=== PATIENT | female | born 1955 | race Caucasian/White ===

== ENCOUNTER → 2016-09-21 | Outpatient (CLI) | payer OTHER ==
[~2016-09-21] MED LIST: NOHOMEMEDICATIONS
--- NOTE | ~2016-09-21 | EKG ---
[address] [address] ELECTROCARDIOGRAM REPORT Name: TRENA HUFFMAN Room #: REG [facility]#: [id number] Admission: 09/21/16 Attend Phys: Josh Ayala MD Discharge: Date of : 51 Report #: [id number] THIS REPORT FOR: //name// [facility] Test Date: 2016-09-21 Test Time: 06:29:14 Pat Name: TRENA TRAN Department: Room: Gender: F [employer] Supervisor: MACI : 1955 Requested By: Josh Ayala Order Number: [id number] MD: Chad Castillo Measurements Intervals [place] Rate: 66 P: 29 MA: 188 QRS: 22 QRSD: 99 T: 19 QT: 404 QTc: 424 Interpretive Statements Sinus rhythm No significant abnormality No previous ECG available for comparison Electronically Signed On 09-21-2016 8:37:39 CDT by Chad Castillo [email or web address] <ELECTRONICALLY SIGNED> By: Chda Castillo MD, [facility] 09/21/16 0837 0629 0629 Chad Castillo MD, FACC /EPI
== END | disposition home or self-care (01) ==
LOC: LITH 06:01
DX: N20.1 Calculus of ureter (principal)